=== PATIENT | male | born 1945 | race Caucasian/White ===

== ENCOUNTER 2019-09-06 10:27 | Inpatient (IN) | payer MEDICARE ==
[2019-09-06] MEDS ORDERED: Sodium Chloride 0.9% 1000 ML 1,000 ML IV STA ×3 (11:06→14:40)
[2019-09-06] MEDS ORDERED: Zofran 4 MG/2 ML VIAL IV ONE (11:06)
[2019-09-06] MEDS ORDERED: TYLENOL 325 MG PO ONE (11:14)
[2019-09-06 11:18] LABS: Hemoglobin 16.2 gm/dl (12.5-18.0); Mean Cell Volume 82.1 fl (78-100); Mean Corpuscular Hemoglobin 28.9 pg (26-32); Mean Corpuscular Hgb Concent. 35.2 g/dl (32-36); Mean Platelet Volume 9.2 fl (7.5-11.0); Platelet Count 220 K/mm3 (150-450); Red Cell Distribution Width 14.7 % (11.5-14.0); White Blood Count 20.6 K/mm3 (4.0-10.5)
[2019-09-06] MEDS ORDERED: TYLENOL 325 MG ONE (11:22)
[2019-09-06] MEDS ORDERED: Zofran 4 MG/2 ML VIAL ONE (11:22)
[2019-09-06] MEDS ORDERED: Sodium Chloride 0.9% 1000 ML 1,000 ML ONE ×3 (11:22→14:53)
[2019-09-06 11:25] LABS: ALBUMIN 4.5 g/dL (3.5-5.0); ALKALINE PHOSPHATASE 135 U/L (38-126); ANION GAP 19.5 MEQ/L (5-15); BLOOD UREA NITROGEN 19 mg/dL (9-20); CHLORIDE 101 mmol/L (98-107); Calcium 8.9 mg/dL (8.4-10.2); Carbon Dioxide 21 mmol/L (22-30); Creatinine 1 0.58 mg/dL (0.66-1.25); Glucose 213 mg/dL (74-106); MAGNESIUM 1.9 mg/dL (1.6-2.3); Potassium 3.5 mmol/L (3.5-5.1); SGOT/AST 50 U/L (17-59); SGPT/ALT 59 U/L (0-50); SODIUM 137 mmol/L (137-145); Total Protein 7.6 g/dL (6.3-8.2)
--- NOTE | 2019-09-06 11:29 | ERPHSYRPT ---
- History of Present Illness Time Seen by Provider: 09/06/19 11:00 Source: patient Exam Limitations: no limitations Patient Subjective Stated Complaint: Dizzness Triage Nursing Assessment: Patient brought back to ED via w/c and transferred to bed with assist of 1. Patient A+O X3. Patient's skin pink, warm and dry. Patient complains of dizziness for 4 days. Patient states he has also been vomiting and diarrhea for 4 days. Patient complains of constant aching headache 01/05. Pupils PERRL. [employer] sales trainee strong and equal. Physician History: Patient is a 74-year-old male presents to our ED for evaluation of nausea vomiting and diarrhea that has been ongoing for approximately 4 days. Patient states in that time interval he has developed dizziness and headache. Headache is global. Symptoms are mild to moderate intensity. No specific worsening improving factors. No numbness tingling or weakness. No blurred vision. No head trauma. No fevers. Patient denies abdominal pain. Patient works as a salesman. He is generally healthy. Patient advises staff that he he has a history of hypokalemic periodic paralysis and is on potassium supplementation. Patient voices no other complaints at this time. Timing/Duration: day(s) (4) Severity: moderate Modifying Factors: Improves With: nothing Associated Symptoms: nausea, vomiting, headaches (diarrhea) Allergies/Adverse Reactions: No Known Drug Allergies Allergy (Unverified 09/06/19 11:08) Home Medications: Finasteride 1 tab PO DAILY 09/06/19 [History] lisinopriL [Lisinopril] 1 tab PO DAILY 09/06/19 [History] Hx Influenza Vaccination/Date Given: Yes Hx Pneumococcal Vaccination/Date Given: Yes Immunizations Up to Date: Yes Travel Risk - International Travel Have you traveled outside of the country in past 3 weeks: No Have you or anyone close to you been diagnosed with or: No Do your reside in a community with a known COVID-19 case?: Yes If Yes where:: [facility] - Coronavirus Screening Has patient experienced Coronavirus symptoms: No - Review of Systems Constitutional: No Symptoms, No Fever, No Chills Eyes: No Symptoms Ears, Nose, & Throat: No Symptoms Respiratory: No Symptoms, No Cough, No Dyspnea Cardiac: No Symptoms, No Chest Pain, No Edema, No Syncope Abdominal/Gastrointestinal: No Symptoms, No Abdominal Pain, No Nausea, No Vomiting, No Diarrhea Genitourinary Symptoms: No Symptoms, No Dysuria Musculoskeletal: No Symptoms, No Back Pain, No Neck Pain Skin: No Symptoms, No Rash Neurological: No Symptoms, Irritability, No Dizziness, No Focal Weakness, No Sensory Changes Psychological: No Symptoms Endocrine: No Symptoms Immunological/Allergic: No Symptoms All Other Systems: Reviewed and Negative - Past Medical History Pertinent Past Medical History: Yes Neurological History: No Pertinent History ENT History: No Pertinent History Cardiac History: Hypertension Endocrine Medical History: No Pertinent History Musculoskeletal History: No Pertinent History GI Medical History: No Pertinent History History: No Pertinent History Psycho-Social History: No Pertinent History Male Reproductive Disorders: Prostate Problems Other Medical History: Hypokalemic periodic paralysis - Past Surgical History Past Surgical History: Yes Neuro Surgical History: No Pertinent History Cardiac: No Pertinent History Respiratory: No Pertinent History Gastrointestinal: Hernia Repair Genitourinary: No Pertinent History Musculoskeletal: No Pertinent History Male Surgical History: No Pertinent History - Social History Smoking Status: Never smoker Exposure to second hand smoke: No Drug Use: none Patient Lives Alone: Yes - Nursing Vital Signs Nursing Vital Signs: Initial Vital Signs Temperature 97.8 F 09/06/19 10:40 Pulse Rate 83 09/06/19 10:40 Respiratory Rate 18 09/06/19 10:40 Blood Pressure 182/89 09/06/19 10:40 O2 Sat by Pulse Oximetry 95 09/06/19 10:40 Pain Scale Pain Intensity 6 - Physical Exam General Appearance: no apparent distress, alert Eye Exam: PERRL/EOMI, eyes nml inspection Ears, Nose, Throat Exam: normal ENT inspection, TMs normal, pharynx normal, moist mucous membranes Neck Exam: normal inspection, non-tender, supple, full range of motion Respiratory Exam: normal breath sounds, lungs clear, No respiratory distress Cardiovascular Exam: regular rate/rhythm, normal heart sounds, normal peripheral pulses Gastrointestinal/Abdomen Exam: soft, normal bowel sounds, No tenderness, No mass Back Exam: normal inspection, normal range of motion, No CVA tenderness, No vertebral tenderness Extremity Exam: normal inspection, normal range of motion, pelvis stable Neurologic Exam: alert, oriented x 3, cooperative, chronic specialist II-XII nml as tested, normal mood/affect, nml cerebellar function, nml station & gait, sensation nml, No motor deficits, No sensory deficit, No disoriented, No confusion Skin Exam: normal color, warm, dry, No rash Lymphatic Exam: No adenopathy SpO2 Interpretation: normal SpO2: 95 O2 Delivery: Room Air - Course Nursing assessment & vital signs reviewed: Yes EKG Interpreted by Me: RATE, Sinus Rhythm, NORMAL AXIS, NORMAL INTERVALS - Radiology Exams Chest X-ray Interpretation: Teleradiologist Report (Possible small pleural effusion otherwise within normal limits.) - CT Exams Head CT Interpretation: Tele-radiologist Report (Senile brain. No acute intracranial pathology.) Abdomen/Pelvis CT Interpretation: Tele-radiologist Report (CT abdomen pelvis shows hiatal hernia, bilateral renal perinephric stranding, enlarged prostate, splenic cyst, hepatic steatosis,) Ordered Tests: Active Orders 24 hr Category Date Time Status Language And Literature Division Chair STAT Care 09/06/19 11:07 Active EKG-ER Only STAT Care 09/06/19 11:06 Active IV Insertion STAT Care 09/06/19 11:06 Active ABDOMEN AND PELVIS W CONTRAST [CT] Stat Exams 09/06/19 12:27 Completed CHEST 1 VIEW (PORTABLE) Stat Exams 09/06/19 11:07 Completed HEAD WITHOUT CONTRAST [CT] Stat Exams 09/06/19 11:07 Completed BLOOD CULTURE Stat Lab 09/06/19 12:50 Received CBC W DIFF Stat Lab 09/06/19 11:10 Completed CK (IN-HOUSE) [CK-Creatinine Phosphokinase] Stat Lab 09/06/19 11:15 Completed CMP Stat Lab 09/06/19 11:10 Completed CSF GLUCOSE Stat Lab 09/06/19 15:45 Completed CSF PROTEIN Stat Lab 09/06/19 15:45 Completed CSF, CELL COUNT Stat Lab 09/06/19 14:45 Completed CULTURE,CSF Stat Lab 09/06/19 15:58 Ordered CULTURE,URINE Stat Lab 09/06/19 16:16 Uncollected Lactic Acid Stat Lab 09/06/19 12:50 Completed Lactic Acid Stat Lab 09/06/19 14:55 Completed MAGNESIUM Stat Lab 09/06/19 11:10 Completed Manual Differential NC Stat Lab 09/06/19 11:10 Completed TROPONIN Q3H Lab 09/06/19 11:10 Completed TROPONIN Q3H Lab 09/06/19 12:50 Completed TROPONIN Q3H Lab 09/06/19 17:15 Ordered TROPONIN Q3H Lab 09/06/19 20:15 Ordered TROPONIN Q3H Lab 09/06/19 23:15 Ordered UA W/RFX UR CULTURE Stat Lab 09/06/19 11:30 Completed Transfer Order Routine Transfer 09/06/19 Ordered Medication Summary Discontinued Medications Generic Name Dose Route Start Last Admin Trade Name Monroeq PRN Reason Stop Dose Admin Acetaminophen 975 mg 09/06/19 11:14 09/06/19 11:23 Tylenol 325 Mg PO 09/06/19 11:15 975 mg STAT ONE Administration Acetaminophen Confirm 09/06/19 11:22 Tylenol 325 Mg Administered 09/06/19 11:23 Dose 975 mg .ROUTE .STK-MED ONE Cefazolin Sodium Confirm 09/06/19 14:52 Kefzol 1 Gm Administered 09/06/19 14:53 Dose 1 g .ROUTE .STK-MED ONE Sodium Chloride 1,000 mls @ 999 mls/hr 09/06/19 11:06 09/06/19 12:36 Sodium Chloride 0.9% 1000 Ml IV 09/06/19 12:06 Infused .Q1H1M STA Infusion Sodium Chloride Confirm 09/06/19 11:22 Sodium Chloride 0.9% 1000 Ml Administered 09/06/19 11:23 Dose 1,000 mls @ ud .ROUTE .STK-MED ONE Sodium Chloride 1,000 mls @ 999 mls/hr 09/06/19 12:43 09/06/19 14:14 Sodium Chloride 0.9% 1000 Ml IV 09/06/19 13:43 Infused .Q1H1M STA Infusion Sodium Chloride Confirm 09/06/19 12:43 Sodium Chloride 0.9% 1000 Ml Administered 09/06/19 12:44 Dose 1,000 mls @ ud .ROUTE .STK-MED ONE Sodium Chloride 1,000 mls @ 999 mls/hr 09/06/19 14:40 09/06/19 15:41 Sodium Chloride 0.9% 1000 Ml IV 09/06/19 15:40 999 mls/hr .Q1H1M STA Administration Cefazolin Sodium/Dextrose 1 gm in 50 mls @ 100 mls/hr 09/06/19 14:43 15:43 Kefzol 1 Gm/50 Ml Premix IV 09/06/19 15:12 100 mls/hr STAT STA 100 mls/hr Administration Vancomycin HCl 250 mls @ 167 mls/hr 09/06/19 14:43 Vancomycin 1gm/ Ns 250ml IV 09/06/19 16:12 STAT ONE Acyclovir Sodium 500 mg/ 100 mls @ 100 mls/hr 09/06/19 14:44 09/06/19 16:22 Dextrose IV 09/06/19 15:43 100 mls/hr STAT ONE Administration Vancomycin HCl Confirm 09/06/19 14:52 Vancomycin 1gm/ Ns 250ml Administered 09/06/19 14:53 Dose 250 mls @ ud IV .STK-MED ONE Sodium Chloride Confirm 09/06/19 14:53 Sodium Chloride 0.9% 1000 Ml Administered 09/06/19 14:54 Dose 1,000 mls @ ud .ROUTE .STK-MED ONE Sodium Chloride Confirm 09/06/19 14:53 Sodium Chloride 0.9% 50 Ml Administered 09/06/19 14:54 Dose 50 mls @ ud IV .STK-MED ONE Ketorolac Tromethamine 15 mg 09/06/19 12:55 09/06/19 12:58 Toradol 30 Mg Injection IV 09/06/19 12:56 15 mg STAT ONE Administration Ketorolac Tromethamine Confirm 09/06/19 12:57 Toradol 30 Mg Injection Administered 09/06/19 12:58 Dose 30 mg .ROUTE .STK-MED ONE Ondansetron HCl 4 mg 09/06/19 11:06 09/06/19 11:24 Zofran 4 Mg/2 Ml Vial IV 09/06/19 11:07 4 mg STAT ONE Administration Ondansetron HCl Confirm 09/06/19 11:22 Zofran 4 Mg/2 Ml Vial Administered 09/06/19 11:23 Dose 4 mg .ROUTE .STK-MED ONE Prochlorperazine Edisylate 10 mg 09/06/19 14:22 Compazine 10 Mg/2 Ml IV 09/06/19 14:23 STAT ONE Lab/Rad Data: Laboratory Result Diagrams 09/06/19 11:10 09/06/19 11:10 Laboratory Results 09/06/19 09/06/19 09/06/19 Range/Units 15:45 14:55 14:45 WBC (4.0-10.5) K/mm3 RBC (4.1-5.6) M/mm3 Hgb (12.5-18.0) gm/dl Hct (42-50) % MCV (78-100) fl MCH (26-32) pg MCHC (32-36) g/dl RDW (11.5-14.0) % Plt Count (150-450) K/mm3 MPV (7.5-11.0) fl Absolute Granulocytes (1.4-6.9) Segmented Neutrophils (36.-66.) % Band Neutrophils (0.0-2.0) % Lymphocytes (Manual) (24-44) % Monocytes (Manual) (0.0-12.0) % Platelet Estimate (NORMAL) RBC Morphology Sodium (137-145) mmol/L Potassium (3.5-5.1) mmol/L Chloride (98-107) mmol/L Carbon Dioxide (22-30) mmol/L Anion Gap (5-15) MEQ/L BUN (9-20) mg/dL Creatinine (0.66-1.25) mg/dL Estimated GFR ML/MIN Glucose (74-106) mg/dL Lactic Acid 2.0 (0.4-2.0) Calcium (8.4-10.2) mg/dL Magnesium (1.6-2.3) mg/dL Total Bilirubin (0.2-1.3) mg/dL AST (17-59) U/L ALT (0-50) U/L Alkaline Phosphatase (38-126) U/L Creatine Kinase (55-170) U/L Troponin I (0.000-0.034) ng/mL Serum Total Protein (6.3-8.2) g/dL Albumin (3.5-5.0) g/dL Urine Color (YELLOW) Urine Appearance (CLEAR) Urine pH (5-6) Ur Specific [place] (1.005-1.025) Urine Protein (Negative) Urine Ketones (NEGATIVE) Urine Blood (0-5) Lucas/ul Urine Nitrite (NEGATIVE) Urine Bilirubin (NEGATIVE) Urine Urobilinogen (0-1) mg/dL Ur Leukocyte Esterase (NEGATIVE) Urine WBC (Auto) (0-5) /HPF Urine RBC (Auto) (0-2) /HPF U Epithel Cells (Auto) (FEW) /HPF Urine Bacteria (Auto) (NEGATIVE) /HPF Granular Casts (Auto) (NEGATIVE) /LPF Urine Mucus (Auto) (NEGATIVE) /HPF Urine Culture Reflexed (NO) Urine Glucose (NEGATIVE) mg/dL CSF Color COLORLESS CSF Clarity CLEAR CSF WBC 4 (0-6) CU. MM CSF RBC 3 H (0-2) CU. MM CSF Protein (2) 62 H (12-60) mg/dL CSF Glucose 95 H (40-70) mg/dL 09/06/19 09/06/19 09/06/19 Range/Units 12:50 12:50 11:30 WBC (4.0-10.5) K/mm3 RBC (4.1-5.6) M/mm3 Hgb (12.5-18.0) gm/dl Hct (42-50) % MCV (78-100) fl MCH (26-32) pg MCHC (32-36) g/dl RDW (11.5-14.0) % Plt Count (150-450) K/mm3 MPV (7.5-11.0) fl Absolute Granulocytes (1.4-6.9) Segmented Neutrophils (36.-66.) % Band Neutrophils (0.0-2.0) % Lymphocytes (Manual) (24-44) % Monocytes (Manual) (0.0-12.0) % Platelet Estimate (NORMAL) RBC Morphology Sodium (137-145) mmol/L Potassium (3.5-5.1) mmol/L Chloride (98-107) mmol/L Carbon Dioxide (22-30) mmol/L Anion Gap (5-15) MEQ/L BUN (9-20) mg/dL Creatinine (0.66-1.25) mg/dL Estimated GFR ML/MIN Glucose (74-106) mg/dL Lactic Acid 2.8 H (0.4-2.0) Calcium (8.4-10.2) mg/dL Magnesium (1.6-2.3) mg/dL Total Bilirubin (0.2-1.3) mg/dL AST (17-59) U/L ALT (0-50) U/L Alkaline Phosphatase (38-126) U/L Creatine Kinase (55-170) U/L Troponin I < 0.012 (0.000-0.034) ng/mL Serum Total Protein (6.3-8.2) g/dL Albumin (3.5-5.0) g/dL Urine Color YELLOW (YELLOW) Urine Appearance SLIGHTLY CLOUDY (CLEAR) Urine pH 5.0 (5-6) Ur Specific [place] 1.027 (1.005-1.025) Urine Protein >=500 (Negative) Urine Ketones MODERATE (NEGATIVE) Urine Blood MODERATE (0-5) Lucas/ul Urine Nitrite NEGATIVE (NEGATIVE) Urine Bilirubin NEGATIVE (NEGATIVE) Urine Urobilinogen NEGATIVE (0-1) mg/dL Ur Leukocyte Esterase NEGATIVE (NEGATIVE) Urine WBC (Auto) 0-2 (0-5) /HPF Urine RBC (Auto) 3-5 (0-2) /HPF U Epithel Cells (Auto) NONE (FEW) /HPF Urine Bacteria (Auto) NONE (NEGATIVE) /HPF Granular Casts (Auto) 2-5 (NEGATIVE) /LPF Urine Mucus (Auto) SLIGHT (NEGATIVE) /HPF Urine Culture Reflexed NO (NO) Urine Glucose 50 (NEGATIVE) mg/dL CSF Color CSF Clarity CSF WBC (0-6) CU. MM CSF RBC (0-2) CU. MM CSF Protein (2) (12-60) mg/dL CSF Glucose (40-70) mg/dL 09/06/19 09/06/19 09/06/19 Range/Units 11:15 11:10 11:10 WBC (4.0-10.5) K/mm3 RBC (4.1-5.6) M/mm3 Hgb (12.5-18.0) gm/dl Hct (42-50) % MCV (78-100) fl MCH (26-32) pg MCHC (32-36) g/dl RDW (11.5-14.0) % Plt Count (150-450) K/mm3 MPV (7.5-11.0) fl Absolute Granulocytes (1.4-6.9) Segmented Neutrophils (36.-66.) % Band Neutrophils (0.0-2.0) % Lymphocytes (Manual) (24-44) % Monocytes (Manual) (0.0-12.0) % Platelet Estimate (NORMAL) RBC Morphology Sodium 137 (137-145) mmol/L Potassium 3.5 (3.5-5.1) mmol/L Chloride 101 (98-107) mmol/L Carbon Dioxide 21 L (22-30) mmol/L Anion Gap 19.5 H (5-15) MEQ/L BUN 19 (9-20) mg/dL Creatinine 0.58 L (0.66-1.25) mg/dL Estimated GFR > 60.0 ML/MIN Glucose 213 H (74-106) mg/dL Lactic Acid (0.4-2.0) Calcium 8.9 (8.4-10.2) mg/dL Magnesium 1.9 (1.6-2.3) mg/dL Total Bilirubin 2.10 H (0.2-1.3) mg/dL AST 50 (17-59) U/L ALT 59 H (0-50) U/L Alkaline Phosphatase 135 H (38-126) U/L Creatine Kinase 268 H (55-170) U/L Troponin I < 0.012 (0.000-0.034) ng/mL Serum Total Protein 7.6 (6.3-8.2) g/dL Albumin 4.5 (3.5-5.0) g/dL Urine Color (YELLOW) Urine Appearance (CLEAR) Urine pH (5-6) Ur Specific [place] (1.005-1.025) Urine Protein (Negative) Urine Ketones (NEGATIVE) Urine Blood (0-5) Lucas/ul Urine Nitrite (NEGATIVE) Urine Bilirubin (NEGATIVE) Urine Urobilinogen (0-1) mg/dL Ur Leukocyte Esterase (NEGATIVE) Urine WBC (Auto) (0-5) /HPF Urine RBC (Auto) (0-2) /HPF U Epithel Cells (Auto) (FEW) /HPF Urine Bacteria (Auto) (NEGATIVE) /HPF Granular Casts (Auto) (NEGATIVE) /LPF Urine Mucus (Auto) (NEGATIVE) /HPF Urine Culture Reflexed (NO) Urine Glucose (NEGATIVE) mg/dL CSF Color CSF Clarity CSF WBC (0-6) CU. MM CSF RBC (0-2) CU. MM CSF Protein (2) (12-60) mg/dL CSF Glucose (40-70) mg/dL 09/06/19 Range/Units 11:10 WBC 20.6 H (4.0-10.5) K/mm3 RBC 5.60 (4.1-5.6) M/mm3 Hgb 16.2 (12.5-18.0) gm/dl Hct 46.0 (42-50) % MCV 82.1 (78-100) fl MCH 28.9 (26-32) pg MCHC 35.2 (32-36) g/dl RDW 14.7 H (11.5-14.0) % Plt Count 220 (150-450) K/mm3 MPV 9.2 (7.5-11.0) fl Absolute Granulocytes 18.97 H (1.4-6.9) Segmented Neutrophils 85 H (36.-66.) % Band Neutrophils 7 H (0.0-2.0) % Lymphocytes (Manual) 6 L (24-44) % Monocytes (Manual) 2 (0.0-12.0) % Platelet Estimate NORMAL (NORMAL) RBC Morphology NORMAL Sodium (137-145) mmol/L Potassium (3.5-5.1) mmol/L Chloride (98-107) mmol/L Carbon Dioxide (22-30) mmol/L Anion Gap (5-15) MEQ/L BUN (9-20) mg/dL Creatinine (0.66-1.25) mg/dL Estimated GFR ML/MIN Glucose (74-106) mg/dL Lactic Acid (0.4-2.0) Calcium (8.4-10.2) mg/dL Magnesium (1.6-2.3) mg/dL Total Bilirubin (0.2-1.3) mg/dL AST (17-59) U/L ALT (0-50) U/L Alkaline Phosphatase (38-126) U/L Creatine Kinase (55-170) U/L Troponin I (0.000-0.034) ng/mL Serum Total Protein (6.3-8.2) g/dL Albumin (3.5-5.0) g/dL Urine Color (YELLOW) Urine Appearance (CLEAR) Urine pH (5-6) Ur Specific [place] (1.005-1.025) Urine Protein (Negative) Urine Ketones (NEGATIVE) Urine Blood (0-5) Lucas/ul Urine Nitrite (NEGATIVE) Urine Bilirubin (NEGATIVE) Urine Urobilinogen (0-1) mg/dL Ur Leukocyte Esterase (NEGATIVE) Urine WBC (Auto) (0-5) /HPF Urine RBC (Auto) (0-2) /HPF U Epithel Cells (Auto) (FEW) /HPF Urine Bacteria (Auto) (NEGATIVE) /HPF Granular Casts (Auto) (NEGATIVE) /LPF Urine Mucus (Auto) (NEGATIVE) /HPF Urine Culture Reflexed (NO) Urine Glucose (NEGATIVE) mg/dL CSF Color CSF Clarity CSF WBC (0-6) CU. MM CSF RBC (0-2) CU. MM CSF Protein (2) (12-60) mg/dL CSF Glucose (40-70) mg/dL - Progress Progress: improved Progress Note: 09/06/19 16:29 Patient reassessed. Headache improved but not resolved. Patient still experiencing photophobia. CSF fluid appears clear preliminary results appear nonremarkable. Antibiotics and antiviral infused. Work-up suggestive of sepsis. In light of patient's symptoms laboratory findings and unclear source at this time we will test patient for SARS-CoV-2. Case discussed with Dr. Ferrell who accepts admission to observation. Plan of care discussed with patient. He agrees to admission to [facility] for further evaluation and treatment. Discussed with Dr.: Elo Will see patient in: hospital (observation) Counseled pt/family regarding: lab results, diagnosis, need for follow-up, rad results - Departure Departure Disposition: Observation Clinical Impression: Leukocytosis, Bandemia, High anion gap metabolic acidosis, Dehydration, Hyperglycemia, Total bilirubin, elevated, Proteinuria, Hematuria, Nausea and vomiting, Diarrhea, Lactic acidosis, Enlarged prostate, Splenic cyst, Hepatic steatosis Condition: Stable Critical Care Time: No Referrals: DOCTOR,NO FAMILY [Primary Care Provider] -
[2019-09-06 11:37] LABS: BAND 7 % (0.0-2.0); Lymphocytes 6 % (24-44); Monocyte 2 % (0.0-12.0); Neutrophils 85 % (36.-66.); Total Cells Counted 100
[2019-09-06 11:39] LABS: Platelet Estimate NORMAL (NORMAL)
[2019-09-06 11:40] LABS: Absolute Neutrophil Ct (ANC) 18.97 (1.4-6.9)
[2019-09-06 11:44] LABS: Appearance SLIGHTLY CLOUDY (CLEAR); Bilirubin NEGATIVE (NEGATIVE); Blood MODERATE Ery/ul (0-5); Glucose 50 mg/dL (NEGATIVE); Ketones MODERATE (NEGATIVE); Leukocyte Esterase NEGATIVE (NEGATIVE); Mucus SLIGHT /HPF (NEGATIVE); Nitrite NEGATIVE (NEGATIVE); Protein,Urine Dip >=500 (Negative); Specific Gravity 1.027 (1.005-1.025); Urobilinogen NEGATIVE mg/dL (0-1); WBC 0-2 /HPF (0-5)
--- NOTE | 2019-09-06 11:51 | XRAY ---
Indication: Dizziness, nausea, and vomiting 4 days. Comparison: None Portable chest demonstrates minimal right costophrenic angle blunting either tiny pleural effusion versus pleural thickening. No focal infiltrate or consolidation. Heart and mediastinal structures within normal limits. Bony thorax intact. Impression: Right costophrenic angle blunting, pleural effusion versus pleural thickening. Negative for acute pneumonic process or CHF.
--- NOTE | 2019-09-06 11:51 | XRAY ---
Indication: Dizziness, nausea, and vomiting 4 days. Multiple contiguous axial images obtained through the head without contrast. Comparison: None Age-appropriate global atrophy and minimal periventricular degenerative micro-ischemia bilaterally. No acute intracranial hemorrhage, abnormal extra-axial fluid collection, or mass effect. Fourth ventricle is midline without hydrocephalus. Ortiz-white matter differentiation preserved. Bony calvarium intact. Visualized paranasal sinuses and mastoid air cells are clear. Impression: Nonacute senile brain.
[2019-09-06] MEDS ORDERED: TORAdol 30 mg Injection IV ONE (12:55)
[2019-09-06] MEDS ORDERED: TORAdol 30 mg Injection ONE (12:57)
--- NOTE | 2019-09-06 14:01 | XRAY ---
Indication: Nausea and vomiting 4 days. Dizziness. Multiple contiguous axial images obtained through the abdomen and pelvis using 80 cc Isovue 370 contrast only. Comparison: None Lung bases demonstrates minimal fibrosis/scarring without focal infiltrate or effusion. Heart is not enlarged. Small hiatal hernia. Stomach is mildly fluid distended. Noncontrasted stomach and bowel loops appear nonobstructed. Normal appendix. Majority of the colon is decompressed with minimal sigmoid diverticulosis. No bowel wall thickening/inflammatory changes. Both kidneys enhance and excrete with a few left renal parapelvic cysts and 6 mm mid cortical cyst. Mild nonspecific bilateral perinephric stranding. Slightly enlarged prostate gland impresses on the base of the bladder. 1.2 cm splenic cyst. Mild fatty hepatomegaly measuring 21 cm. Previous cholecystectomy. No free fluid/air. Remaining liver, pancreas, spleen, adrenal glands, kidneys, ureters, and bladder appear unremarkable. Mild aortoiliac calcifications. No AAA or pathologic retroperitoneal lymphadenopathy. Osseous structures intact with minimal degenerative changes throughout the thoracolumbar spine. No ventral or inguinal hernias. Impression: 1. Small hiatal hernia, minimal sigmoid diverticulosis, fatty hepatomegaly, left renal cysts, splenic cyst, and enlarged prostate gland. 2. Remaining CT abdomen/pelvis with contrast exam is negative.
[2019-09-06] MEDS ORDERED: Compazine 10 MG/2 ML IV ONE (14:22)
[2019-09-06] MEDS ORDERED: Vancomycin 1GM/ Ns 250ML*** 250 ML IV ONE ×2 (14:43→14:52)
[2019-09-06] MEDS ORDERED: KEFZOL 1 GM/50 ML PREMIX** 1 GM/50 ML IVPB IV STA (14:43)
[2019-09-06] MEDS ORDERED: Zovirax INJ*** 500 MG in D5w 100ML Mini Bag 100 ML 100 ML IV ONE (14:44)
[2019-09-06] MEDS ORDERED: KEFZOL 1 GM ONE (14:52)
[2019-09-06 15:54] LABS: CSF CLARITY CLEAR; CSF COLOR COLORLESS
[2019-09-06 15:55] LABS: CSF RBCS 3 CU. MM (0-2); CSF WBCS 4 CU. MM (0-6)
[2019-09-06 16:08] LABS: CSF GLUCOSE 95 mg/dL (40-70); CSF PROTEIN 62 mg/dL (12-60)
[2019-09-06] MEDS ORDERED: MORPHINE SULFATE 2 MG INJ IV PRN (17:33)
[2019-09-06] MEDS: Lactated Ringers 1,000 ML IV SCH (21:10)
[2019-09-06] MEDS: Zofran 4 MG/2 ML VIAL IV PRN (21:11)
[2019-09-06] MEDS: TYLENOL 325 MG PO PRN (21:11)
[2019-09-06] MEDS: Ambien 5 MG Tablet PO PRN (21:54)
[2019-09-07 06:44] LABS: Absolute Neutrophil Ct (ANC) 10.61 (1.4-6.9); BASOPHIL % 0.1 % (0.0-0.4); Basophil (Absolute #) 0.01 (0-0.4); Eosinophil (Absolute #) 0 (0-0.5); Hemoglobin 13.6 gm/dl (12.5-18.0); Lymphocyte (Absolute #) 1.86 (1.0-4.6); Mean Corpuscular Hemoglobin 29.6 pg (26-32); Mean Corpuscular Hgb Concent. 34.9 g/dl (32-36); Mean Platelet Volume 9.5 fl (7.5-11.0); Monocyte (Absolute #) 0.77 (0.0-1.3); Monocytes % 5.8 % (0.0-12.0); Neutrophil % 80.1 % (36.0-66.0); Platelet Count 136 K/mm3 (150-450); Red Blood Count 4.59 M/mm3 (4.1-5.6); Red Cell Distribution Width 14.5 % (11.5-14.0); White Blood Count 13.3 K/mm3 (4.0-10.5)
[2019-09-07 06:55] LABS: ALBUMIN 3.1 g/dL (3.5-5.0); ALKALINE PHOSPHATASE 79 U/L (38-126); ANION GAP 8.4 MEQ/L (5-15); BLOOD UREA NITROGEN 18 mg/dL (9-20); CHLORIDE 106 mmol/L (98-107); Calcium 8.4 mg/dL (8.4-10.2); Carbon Dioxide 25 mmol/L (22-30); Glucose 112 mg/dL (74-106); Potassium 3.3 mmol/L (3.5-5.1); SGOT/AST 35 U/L (17-59); SGPT/ALT 38 U/L (0-50); SODIUM 136 mmol/L (137-145); Total Protein 5.6 g/dL (6.3-8.2)
[2019-09-07] MEDS: Zofran 4 MG/2 ML VIAL IV PRN (09:13)
[2019-09-07] MEDS: TYLENOL 325 MG PO PRN (09:14)
[2019-09-07] MEDS ORDERED: Zestril 10 MG PO SCH (10:00)
[2019-09-07] MEDS ORDERED: Proscar 5 MG PO SCH (10:00)
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
[2019-09-07 13:27] LABS: C. Difficile Organism NEGATIVE (NEGATIVE); Campylobacter NEGATIVE (NEGATIVE); Enteroaggregative E.coli NEGATIVE (NEGATIVE); Enteropathogenic E.coli NEGATIVE (NEGATIVE); Enterotoxigenic E.coli NEGATIVE (NEGATIVE); Plesiomonas shigelloides NEGATIVE (NEGATIVE); Salmonella NEGATIVE (NEGATIVE); Shiga-like toxin prod.E.coli NEGATIVE (NEGATIVE); Vibrio NEGATIVE (NEGATIVE); Vibrio cholerae NEGATIVE (NEGATIVE); Yersinia enterocolitica NEGATIVE (NEGATIVE)
[2019-09-07 13:28] LABS: Adenovirus F 40/41 NEGATIVE (NEGATIVE); Astrovirus NEGATIVE (NEGATIVE); Cryptosporidium NEGATIVE (NEGATIVE); Cyclospora cayentanensis NEGATIVE (NEGATIVE); Entamoeaba histolytica NEGATIVE (NEGATIVE); Giardia lamblia NEGATIVE (NEGATIVE); Norovirus GI/GII NEGATIVE (NEGATIVE); Rotavirus A NEGATIVE (NEGATIVE); Sapovirus NEGATIVE (NEGATIVE)
[2019-09-07] MEDS: Lactated Ringers 1,000 ML IV SCH (16:26)
[2019-09-07] MEDS: Ambien 5 MG Tablet PO PRN (21:50)
[2019-09-08 00:07] VITALS: O2SAT 96
[2019-09-08 05:56] LABS: Absolute Neutrophil Ct (ANC) 6.53 (1.4-6.9); BASOPHIL % 0.2 % (0.0-0.4); Basophil (Absolute #) 0.02 (0-0.4); Eosinophil % 0.3 % (0.00-5.0); Eosinophil (Absolute #) 0.03 (0-0.5); Hematocrit 39.4 % (42-50); Hemoglobin 13.5 gm/dl (12.5-18.0); Lymphocyte (Absolute #) 2.92 (1.0-4.6); Lymphocytes % 28.5 % (24.0-44.0); Mean Cell Volume 85.1 fl (78-100); Mean Corpuscular Hemoglobin 29.2 pg (26-32); Mean Corpuscular Hgb Concent. 34.3 g/dl (32-36); Mean Platelet Volume 9.8 fl (7.5-11.0); Monocyte (Absolute #) 0.74 (0.0-1.3); Monocytes % 7.2 % (0.0-12.0); Neutrophil % 63.8 % (36.0-66.0); Platelet Count 115 K/mm3 (150-450); Red Blood Count 4.63 M/mm3 (4.1-5.6); Red Cell Distribution Width 14.8 % (11.5-14.0); White Blood Count 10.2 K/mm3 (4.0-10.5)
[2019-09-08 05:57] LABS: ALBUMIN 3.2 g/dL (3.5-5.0); ALKALINE PHOSPHATASE 69 U/L (38-126); BLOOD UREA NITROGEN 12 mg/dL (9-20); CHLORIDE 105 mmol/L (98-107); Calcium 7.9 mg/dL (8.4-10.2); Carbon Dioxide 27 mmol/L (22-30); Creatinine 1 0.54 mg/dL (0.66-1.25); Glucose 102 mg/dL (74-106); MAGNESIUM 1.7 mg/dL (1.6-2.3); Potassium 3.1 mmol/L (3.5-5.1); SGOT/AST 37 U/L (17-59); SGPT/ALT 39 U/L (0-50); SODIUM 136 mmol/L (137-145); Total Protein 5.8 g/dL (6.3-8.2)
[2019-09-08 08:03] VITALS: BP 166/82; PULSE 70
[2019-09-08] MEDS ORDERED: K-LYTE 25 MEQ PO ONE (08:20)
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
== END 2019-09-08 09:25 | disposition home or self-care (01) | DRG 641 ==
LOC: ED 10:27 → MED SURG 17:30 → UNDOADMOB 17:30 → MED SURG 09-07 05:40 → OBSVTOIN 09-07 05:40 → INTOOBSV 09-07 10:19 → OBSVTOIN 09-07 10:19 → UNDODISIN 09-08 09:25
PROVIDERS: ADMIT Family Medicine; ATTEND Family Medicine
DX: E86.0 Dehydration (principal); R42 Dizziness and giddiness; R51 Headache; R19.7 Diarrhea, unspecified; R41.0 Disorientation, unspecified; E87.2 Acidosis; D72.829 Elevated white blood cell count, unspecified; I10 Essential (primary) hypertension; E78.00 Pure hypercholesterolemia, unspecified; R11.2 Nausea with vomiting, unspecified; R53.1 Weakness; H53.149 Visual discomfort, unspecified; Z79.899 Other long term (current) drug therapy
CPT/HCPCS: 36000; 36415; 62270; 70450; 71045; 74177; 80053; 81001; 82550; 82945; 83605; 83735; 84157; 84484; 85025; 87040; 87070; 87086; 87483; 87507; 89050; 93005; 93041; 93268; 94762; 96360; 96361; 96365; 96374; 96375; 99000; 99285; G0378; 99100; J0133; J0690; J1885; J2405; J3370; A9270-GY

== ENCOUNTER 2022-10-10 11:33 | Day surgery (SDC) | payer MEDICARE ==
--- NOTE | 2022-10-10 08:17 | HP ---
DATE OF SURGERY: 10/10/2022 HISTORY OF PRESENT ILLNESS: The patient is a 77-year-old with enlarging posterior neck subcutaneous mass getting bigger and desires excision. PAST MEDICAL HISTORY: Hypertension, PAST SURGICAL HISTORY: T&A. Colonoscopy. Hernia repair. Cholecystectomy. MEDICATIONS: Per the provider list. ALLERGIES: NKDA. FAMILY HISTORY: Alzheimer's. SOCIAL HISTORY: No smoking or alcohol abuse. REVIEW OF SYSTEMS: Fourteen systems reviewed. No chest pain or palpitations. Other systems negative or noncontributory as above and per preadmission questionnaire. PHYSICAL EXAMINATION: BMI 33.6. Height 5'10". GENERAL: No acute distress. HEENT: Sclerae nonicteric. EOMI. Oropharynx mucous membranes moist. NECK: No JVD. Posterior neck subcutaneous mass question lipoma or other etiology. CHEST: Equal excursion, nonlabored breathing. CVS: Regular rate and rhythm. ABDOMEN: Soft. No peritoneal signs. EXTREMITIES: No significant edema. NEURO: Alert, oriented. PSYCH: Appropriate mood and affect. SKIN: Dry. IMPRESSION: Enlarging posterior neck subcutaneous mass or lipoma. I feel the patient would benefit from excision. General risk of bleeding or infection, risk of hematoma or seroma formation, risk of dehiscence possibly requiring packing, general risk of aches, pains, burning or numbness. What we excise likely will not recur but he could get subcutaneous mass or lipoma adjacent to or elsewhere on his body. General risk of anesthesia, deep venous thrombosis, pulmonary embolism, or pneumonia but not limited to, consent obtained. Will proceed with excisional biopsy of posterior neck subcutaneous mass as an outpatient.
[2022-10-10] MEDS ORDERED: Lactated Ringers 1,000 ML IV SCH (12:00)
[2022-10-10] MEDS ORDERED: CEFAZOLIN 2 GM-D5W BAG** 2 GM/50 ML ML IV SCH (12:00)
[2022-10-10] MEDS ORDERED: Versed 2 MG/2 ML Injection ONE (13:50)
[2022-10-10] MEDS ORDERED: SUBLIMAZE 100 MCG/2 ML ONE ×3 (13:51→15:22)
[2022-10-10] MEDS ORDERED: Xylocaine-Mpf 2% 5 Ml Vial ONE (13:52)
[2022-10-10] MEDS ORDERED: DIPRIVAN 200 MG/20 ML IV ONE (13:52)
[2022-10-10] MEDS ORDERED: Quelicin Fliptop 200 MG/10 ML ONE (13:52)
[2022-10-10] MEDS ORDERED: Decadron 4 MG INJ ONE (13:52)
[2022-10-10] MEDS ORDERED: Zofran 4 MG/2 ML VIAL ONE (13:52)
[2022-10-10] MEDS ORDERED: Zemuron 100 MG/10 ML ONE (14:13)
[2022-10-10] MEDS ORDERED: Sensorcaine 0.25% 10 ML ONE (14:23)
[2022-10-10] MEDS ORDERED: BRIDION 200MG/2ML IV ONE (14:28)
[2022-10-10 16:28] VITALS: BP 134/82; PULSE 81; O2SAT 92
--- NOTE | 2022-10-11 08:34 | OP ---
SURGERY DATE/TIME: 10/10/2022 5142 PREOPERATIVE DIAGNOSIS: Enlarging subcu mass posterior neck. POSTOPERATIVE DIAGNOSIS: Enlarging subcu mass posterior neck (lipomatous). PROCEDURE: Excisional biopsy of neck subcu mass (approximately 7 cm) with intermediate closure. SURGEON: Memo Martinez M.D. CREAM CHEESE MAKER: Soraida Downs, Medical Student III. ANESTHESIA: General. ESTIMATED BLOOD LOSS: Minimal. INDICATIONS: As noted above. Risks and benefits explained in detail but not limited to, consent obtained. DESCRIPTION OF PROCEDURE AND FINDINGS: The patient is taken to the operating room. General anesthesia induced. Patient is prepped and draped in usual sterile fashion. After official time out and no disagreement with planned procedure, in lateral position appropriate padding and position per anesthesia and OR staff. Prepped and draped in usual sterile fashion. A transverse incision made. Dissection carried down to subcu to what seemed to be a much denser lipomatous density carefully dissected off of the underlying fascia slowly and carefully mobilized upward and measured about 7 cm in size. There was one small data architect manager coming through the fascia controlled with 3-0 suture ligature. Good hemostasis noted. The wound is irrigated out. The wound is then closed closing the deep and superficial subcu down to the level of the fascia with interrupted 3-0 Vicryl. Skin closed with 4-0 Vicryl in running subcuticular fashion, 0.25% Marcaine local had been injected along the wound. Steri-Strips and sterile dressing applied. The patient tolerated the procedure well. There were no immediate complications. Findings discussed with the family out in the waiting area including the fact that he could change the dressing either tomorrow evening or the following morning and shower but probably reapply compression dressing over the area to help minimize any seromal formation in the empty space. The family expressed understanding. Otherwise, dry compression dressing with Steri-Strips. He was transferred to the recovery room in stable condition.
== END 2022-10-10 16:35 | disposition home or self-care (01) ==
LOC: SDC 11:33
PROVIDERS: ATTEND Surgery
DX: D17.0 Benign lipomatous neoplasm of skin and subcutaneous tissue of head, face and neck (principal); R22.1 Localized swelling, mass and lump, neck
CPT/HCPCS: 99100; J0330; J0690; J1100; J2250; J2405; J2704; J3010